=== PATIENT | male | born 1995 | race Caucasian/White ===

== ENCOUNTER 2019-06-07 16:24 | Emergency (ER) | payer BC | END 2019-06-07 16:45 | disposition home or self-care (01) | LOC: BURERS 16:24 | DX: T63.2X1A Toxic effect of venom of scorpion, accidental (unintentional), initial encounter (principal) | CPT/HCPCS: 99282 ==

== ENCOUNTER 2019-12-16 12:06 | Outpatient (CLI) | payer BC ==
--- NOTE | 2019-12-16 18:23 | RAD ---
LEFT RIBS THREE VIEWS: Date: 12-16-2019 FINDINGS: No fracture was appreciated. All ribs appeared intact. The adjacent left lung is clear. There is no s ign of pleural fluid or pneumothorax. No focal pleural thickening was seen. The mediastinum shows no widening or shift. IMPRESSION: No significant findings. POS: HOME
== END 2019-12-16 12:07 | disposition home or self-care (01) ==
LOC: BURRAD 12:06
PROVIDERS: ATTEND Family Medicine
DX: R07.81 Pleurodynia (principal)